=== PATIENT | female | born 1970 ===

== ENCOUNTER 2017-01-02 07:50 | Emergency (ER) | payer OTHER ==
--- NOTE | 2017-01-02 08:12 | ED PDOC ---
HPI: General Adult Time Seen by Provider: 01/02/17 07:52 Chief Complaint (Provider): Left Sided Neck Pain History Per: Patient History/Exam Limitations: no limitations Onset/Duration Of Symptoms: Days (x2 weeks) Current Symptoms Are (Timing): Still Present Severity: Mild Additional Complaint(s): Patient is a 46 year old female presenting to the ED complaining of a-traumatic left sided neck pain x2 week. Pain radiates to the left shoulder and left arm. Denies weakness or paresthesia. PMD: none Past Medical History Reviewed: Historical Data, Nursing Documentation, Vital Signs Vital Signs: Last Vital Signs Temp 98.3 F 01/02/17 08:10 Pulse 86 01/02/17 08:10 Resp 14 01/02/17 08:10 BP 132/86 01/02/17 08:10 Pulse Ox 100 01/02/17 08:10 - Medical History PMH: No Chronic Diseases - Surgical History Surgical History: No Surg Hx - Family History Family History: States: No Known Family Hx - Home Medications Home Medications: Ambulatory Orders Medication Instructions Recorded traMADol [Ultram] 50 mg PO Q8 #10 tab 01/02/17 - Allergies Allergies/Adverse Reactions: Allergies Allergy/AdvReac Type Severity Reaction Status Date / Time No Known Allergies Allergy Verified 01/02/17 08:09 Review of Systems ROS Statement: Except As Marked, All Systems Reviewed And Found Negative Musculoskeletal: Positive for: Neck Pain (left sided), Shoulder Pain (left), Arm Pain (left) Neurological: Negative for: Weakness Physical Exam - Reviewed Nursing Documentation Reviewed: Yes Vital Signs Reviewed: Yes - Physical Exam Appears: Positive for: Well, Non-toxic, No Acute Distress Head Exam: Positive for: ATRAUMATIC, NORMAL INSPECTION, NORMOCEPHALIC Skin: Positive for: Normal Color, Warm, DRY Eye Exam: Positive for: EOMI, Normal appearance, PERRL Neck: Positive for: Normal, Painless ROM Cardiovascular/Chest: Positive for: Regular Rate, Rhythm. Negative for: Gallop , Murmur Respiratory: Positive for: Normal Breath Sounds. Negative for: Accessory Muscle Use, Rhonchi, Respiratory Distress Pulses-Radial (L): 2+ Pulses-Radial (R): 2+ Back: Positive for: Normal Inspection. Negative for: L CVA Tenderness, R CVA Tenderness, Vertebral Tenderness, Other (no posterior tenderness or deformity) Extremity: Positive for: Normal ROM Neurologic/Psych: Positive for: Alert, Oriented Medical Decision Making Medical Decision Making: Time: 7:55 Impression: 46 y/o female with left sided neck pain Plan: XR C-Spine Scribe Attestation: Documented by Foster Casanova acting as a scribe for Virgil Todd MD. Scribe Attestation: All medical record entries made by the Scribe were at my direction and personally dictated by me. I have reviewed the chart and agree that the record accurately reflects my personal performance of the history, physical exam, medical decision making, and the department course for this patient. I have also personally directed, reviewed, and agree with the discharge instructions and disposition. Disposition - Clinical Impression Clinical Impression: Cervical radiculopathy - Patient ED Disposition Is Patient to be Admitted: No Counseled Patient/Family Regarding: Studies Performed, Diagnosis, Need For Followup, Rx Given - Disposition Referrals: [facility] [Outside] Disposition: Routine/Home Disposition Time: 08:43 Condition: FAIR Prescriptions: traMADol [Ultram] 50 mg PO Q8 #10 tab Instructions: Cervical Radiculopathy (ED) Print Language: PORTUGUESE
[2017-01-02 08:24] VITALS: BP 132/86; PULSE 86; RESP 14; TEMP 98.3; O2SAT 100
--- NOTE | 2017-01-02 13:24 | RAD ---
PROCEDURE: Cervical Spine Radiographs. HISTORY: Left arm pain COMPARISON: None. FINDINGS: BONES: No acute fractures. Reversal of the anatomic lordosis with kyphosis DISC SPACES: Degenerative changes C4-5, C5-6. Mild. SOFT TISSUES: Normal. No prevertebral soft tissue swelling. OTHER FINDINGS: None. IMPRESSION: No acute findings related to/accounting for the clinical presentation.
== END 2017-01-02 09:35 | disposition home or self-care (01) ==
LOC: H.ER 07:50
DX: M79.602 Pain in left arm (principal); M54.2 Cervicalgia

== ENCOUNTER 2017-01-11 17:46 | Emergency (ER) | payer SELFPAY ==
[2017-01-11 18:38] VITALS: BP 154/99; PULSE 71; RESP 16; TEMP 98; O2SAT 100
--- NOTE | 2017-01-11 19:49 | ED PDOC ---
Upper Extremity Pain/Injury Time Seen by Provider: 01/11/17 19:22 Chief Complaint (Nursing): Upper Extremity Problem/Injury Chief Complaint (Provider): Right arm pain x 2 weeks History Per: Patient History/Exam Limitations: no limitations Onset/Duration Of Symptoms: Days Current Symptoms Are (Timing): Still Present Quality: Dull, Aching Severity: Moderate Pain Scale Rating Of: 7 Torso/Front (Pic): 1 - Tenderness, Pain Worse W/Movement Additional Complaint(s): Pt reports pain in the left arm. PT states that she was seen in ER and given tramadol which helped. Pt was diagnosed with radiculopathy at that time. On x- ray pt has degenerative chnages C4-C5. PT states she was seen by PMD and also given tramadol which has been helping but pt states she ran out. PT states that she has also been doing the stretched she was given by PMD. Pt states she has a f.u appointment next week but the pain was bad so she came to the Er. No new injury/trauma. Past Medical History Reviewed: Historical Data, Nursing Documentation, Vital Signs Vital Signs: Last Vital Signs Temp 98.0 F 01/11/17 18:36 Pulse 71 01/11/17 18:36 Resp 16 01/11/17 18:36 BP 154/99 H 01/11/17 18:36 Pulse Ox 100 01/11/17 18:36 - Medical History PMH: No Chronic Diseases - Surgical History Surgical History: Appendectomy - Family History Family History: States: No Known Family Hx - Living Arrangements Living Arrangements: With Family - Social History Current smoker - smoking cessation education provided: No - Home Medications Home Medications: Ambulatory Orders Medication Instructions Recorded traMADol [Ultram] 50 mg PO Q8 #10 tab 01/02/17 predniSONE [predniSONE Tab] 20 mg PO DAILY #12 tab 01/11/17 - Allergies Allergies/Adverse Reactions: Allergies Allergy/AdvReac Type Severity Reaction Status Date / Time ibuprofen [From Advil] Allergy RASH Verified 01/02/17 08:53 surgical tape AdvReac ITCHING Uncoded 01/11/17 18:34 Review of Systems ROS Statement: Except As Marked, All Systems Reviewed And Found Negative Musculoskeletal: Positive for: Arm Pain (Left ) Physical Exam - Reviewed Nursing Documentation Reviewed: Yes Vital Signs Reviewed: Yes - Physical Exam Appears: Positive for: Well, Non-toxic, No Acute Distress Head Exam: Positive for: ATRAUMATIC, NORMAL INSPECTION, NORMOCEPHALIC Skin: Positive for: Normal Color, Warm, DRY Eye Exam: Positive for: Normal appearance ENT: Positive for: Normal ENT Inspection Neck: Positive for: Normal, Painless ROM Cardiovascular/Chest: Positive for: Regular Rate, Rhythm Respiratory: Positive for: Normal Breath Sounds. Negative for: Accessory Muscle Use Back: Positive for: Normal Inspection. Negative for: Vertebral Tenderness Extremity: Positive for: Normal ROM. Negative for: Tenderness Neurologic/Psych: Positive for: Alert, Oriented - ECG O2 Sat by Pulse Oximetry: 100 Medical Decision Making Medical Decision Making: Discussed f.u with PMD and that no new rx of tramadol can be given from ER for chronic pain. Disposition - Clinical Impression Clinical Impression: Cervical radiculopathy - Patient ED Disposition Is Patient to be Admitted: No Counseled Patient/Family Regarding: Diagnosis, Need For Followup - Disposition Referrals: [facility] [Outside] Disposition: Routine/Home Disposition Time: 20:53 Condition: GOOD Prescriptions: predniSONE [predniSONE Tab] 20 mg PO DAILY #12 tab Instructions: Cervical Radiculopathy (ED)
== END 2017-01-11 21:14 | disposition home or self-care (01) ==
LOC: H.ER 17:46
DX: M54.12 Radiculopathy, cervical region (principal)